=== PATIENT | male | born 1975 | race Two or more races ===

== ENCOUNTER 2024-03-07 11:12 | Outpatient (RCR) | payer MEDICAID, SELFPAY | END 2024-03-10 23:59 | disposition home or self-care (01) | LOC: SCTC 11:12 | PROVIDERS: PCP Family Medicine; Referring Provider Nurse Practitioner Family; Visit Provider Nurse Practitioner Family | DX: D47.3 Essential (hemorrhagic) thrombocythemia (principal); Z79.82 Long term (current) use of aspirin | CPT/HCPCS: 99212; G0463 ==

== ENCOUNTER 2024-05-16 14:42 | Outpatient (RCR) | payer MEDICAID, SELFPAY ==
--- NOTE | 2024-05-16 15:46 | CTCFLWUP_ITS ---
Patient: AIRAM WALDROP : 1975 Page 3 of 3 FOLLOW UP NOTE DATE OF SERVICE: 05/16/2024 NAME: AIRAM WALDROP ACCOUNT: [id number] : 1975 AGE: 48 INTERVAL HISTORY: Patient is taking 500 mg hydroxyurea daily.. Denies any history of or symptoms of stroke or TIA. No chest pain or shortness of breath. No history of amnesia. No history of ulcers on the ankle. Patient used to take hydroxyurea 2 tablets daily for years ago. HISTORY OF PRESENT ILLNESS: This is office follow-up visit. Mr. Candelaria is here at [facility]. He is clinically doing well. Bone marrow biopsy done on 02/22/2023 showed findings consistent with essential thrombocythemia, JAK2 mutation detected. Patient started hydroxyurea 500 mg daily about 2 weeks ago, allopurinol 300 mg daily, tolerating both medications well. . Denies any complaints or concerns. Denies any history of DVT, PE, strokes, heart attack. Denies any cough, chest pain. Denies any nosebleeds or gum bleeds. Denies any recent illness. Mr. Candelaria continues to take baby aspirin 81 mg daily. 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 01/31/2017: KAYLEE 2 mutation positive. Platelet count 743,000, WBC 7.0, hematocrit 15.9. 06/06/2017: Platelets [id number], WBC 6.3 and hemoglobin 15.7. 08/02/2017: Platelets 440,000, WBC 6.6 and hemoglobin 14.6. 10/02/2017: Platelets 595,000, WBC 7.2 and hemoglobin 14.9. 01/02/2018: Hydroxyurea and allopurinol stopped. 04/20/2018: Platelets 714,000, WBC 7.0, hemoglobin 16.0. 06/02/2018: Platelets 818,000, WBC 7.5 and hemoglobin 16.0. 07/21/2018: Platelets 828,000, WBC 7.7, hemoglobin 15.6. Hydroxyurea restarted due to worsening platelet count. 08/28/2018: Platelet count 645,000, WBC 6.5 and hemoglobin is 15.5. 11/27/2018: Platelet count 504,000, WBC 6.2, hemoglobin 14.5. 03/14/2019: Platelet count 638,000's, WBC 5.8, hemoglobin 14.9. 05/29/2018: Platelet count 613,000, WBC 5.7, hemoglobin 14.8. 08/20/2019: Platelets 626,000, WBC 6.2, hemoglobin 15.2. Again I have discussed with Mr. Candelaria regarding stopping hydroxyurea. He is very reluctant to stop it. He would like to wait till the consult from a tertiary center. 12/03/2019: Patient was seen at [facility] hematology department. Recommendation is to stop hydroxyurea and continue aspirin 81 mg p.o. daily. 12/03/2019 labs drawn at [facility] showed his platelet count to be 548,000. 03/05/2020: Platelets 825,000, WBC 6.8, ANC 3.7, hemoglobin 15.4, MCV 94. 06/02/2020: Platelet count 939,000, WBC 6.5, ANC 3.8, hemoglobin 11.1, MCV 93. 06/01/2022: Platelet count 1,006,000, hemoglobin 14.8, WBC 9.6, ANC 6.1. 11/09/2022: Platelet count is 971,000, WBC 7.0, ANC 4.0, globin 16.0, MCV 93. 06/03/2023: Platelets 1,163,000, WBC 10.3, ANC 6.6, hemoglobin 15.8, MCV 91. 09/02/2023: Platelets 996,000, WBC 6.9, ANC 4.0, hemoglobin 15.5, MCV 95 12/02/2023: Platelets 1,143, 000, WBC 11.1, ANC 7.4, hemoglobin 15.2, MCV 94 02/03/2024: Platelets 1,266,000, WBC 11.0, ANC 7.3, hemoglobin 14.7, hematocrit 48.1, MCV 93 OTHER MEDICAL HISTORY/CONDITIONS: FAMILY HISTORY: SOCIAL HISTORY: MEDICATIONS: 1. allopurinol - 300 mg 1 tab Daily 2. aspirin - 81 mg 2 tab Daily 3. Hydrea - 500 mg 2 Capsule Daily 4. hydroxyurea - 500 mg 1 Capsule Daily Medications Last Reconciled by Rosario Saini MA on 05/16/2024 ALLERGIES: No Known Drug Allergies REVIEW OF SYSTEMS: A complete 14-point review of systems was performed and is negative except as noted in interval history. PHYSICAL EXAMINATION: VITAL SIGNS: Temperature?98.4, B/P?138/85, Oxygen?Saturation?99% Weight?199?lbs PAIN: 0 - No pain ECOG Performance Status: 0 - Asymptomatic and fully active GENERAL APPEARANCE: Appears well, in no apparent distress, appropriately interactive. HEENT: Normocephalic, no temporal wasting, normal conjunctiva, no scleral icterus, normal hearing, lips without lesions, neck normal range of motion. CARDIOVASCULAR: Not assessed. PULMONARY: Normal respiratory effort, no respiratory distress or use of accessory muscles, speaking in full sentences, no tachypnea. EXTREMITIES: No pedal edema or cyanosis. SKIN: Normal skin appearance. NEUROLOGIC: Alert and oriented x4. PSHYCHIATRIC: Appropriate affect, mood normal, behavior normal, intact thought and speech. LABORATORY DATA: I have personally reviewed and interpreted each of the patient?s relevant lab tests, abnormal findings are below: Date 02/22/24 ??WHITE?BLOOD?COUNT?(Thou/mm3) 11.5?H ??RED?BLOOD?COUNT?(Miln/mm3) 5.09 ??HEMOGLOBIN?(gm/dl) 15.6 ??HEMATOCRIT?(%) 45.1 ??PLATELET?COUNT?(Thou/mm3) 1254?HH ??NEUTROPHILS?%,?AUTO?(%) 76 ??LYMPH?%,?AUTO?(%) 15 ??NEUTROPHILS,?AUTO?(Thou/mm3) 8.7?H ASSESSMENT/PLAN: #1 essential thrombocythemia JAK2 mutation positive Platelets are not at goal which will be less than 600 Increase hydroxyurea to 1000 mg daily Continue aspirin and allopurinol RTC in 4 weeks to monitor platelets Discussed the side effects of elevated platelets including stroke and OR Also advised to complete CT chest abdomen pelvis which was already ordered by Narcisa ORDERS: CBC CMP hydroxyurea [address] scan chest abdomen pelvis with IV contrast RETURN TO CLINIC: 4 weeks BILLING AND COMPLIANCE: I reviewed external records from providers outside my specialty as summarized above. I spent a total of 50 minutes on this patient?s care on the day of their visit excluding time spent related to any billed procedures. This time includes time spent with the patient as well as time spent documenting in the medical record, reviewing patients records and tests, obtaining history, placing orders, communicating with other healthcare professionals, counseling the patient, family or caregiver, and/or care coordination for the diagnoses above. Electronically Signed by: {Object.Sanct_ID*[email or web address]@M}, {Object.Sanct_ID*PnP.Suffix@U} D: {Object.Sanct_Date} T: {Object.Sanct_Time} CC: Rosaura?Lazaro,?PA-C PCP: Joel Almaraz Referring: Joel Almaraz This document was completed utilizing speech recognition software. Grammatical errors, random word insertions, pronoun errors, and incomplete sentences are an occasional consequence of this system due to software limitations, ambient noise, and hardware issues. Any formal questions or concerns about the content, text or information contained within the body of this dictation should be directly addressed to the provider for clarification.
== END 2024-06-08 23:59 | disposition home or self-care (01) ==
LOC: SCTC 14:42
PROVIDERS: PCP Family Medicine; Referring Provider Family Medicine; Visit Provider Internal Medicine Hematology & Oncology
DX: D47.3 Essential (hemorrhagic) thrombocythemia (principal); Z79.82 Long term (current) use of aspirin
CPT/HCPCS: 99212; G0463

== ENCOUNTER 2024-06-13 15:34 | Outpatient (RCR) | payer MEDICAID, SELFPAY | END 2024-07-09 23:59 | disposition home or self-care (01) | LOC: SCTC 15:34 | PROVIDERS: PCP Family Medicine; Referring Provider Family Medicine; Visit Provider Nurse Practitioner Family | DX: D47.3 Essential (hemorrhagic) thrombocythemia (principal) | CPT/HCPCS: 99212; G0463 ==

== ENCOUNTER 2024-09-17 15:16 | Outpatient (RCR) | payer MEDICAID, SELFPAY | END 2024-10-08 23:59 | disposition home or self-care (01) | LOC: SCTC 15:16 | PROVIDERS: PCP Family Medicine; Referring Provider Family Medicine; Visit Provider Nurse Practitioner Family | DX: D47.3 Essential (hemorrhagic) thrombocythemia (principal) | CPT/HCPCS: 99212; G0463 ==

== ENCOUNTER → 2024-11-05 | Outpatient (CLI) | payer MEDICAID, SELFPAY ==
--- NOTE | 2024-11-05 09:30 | XR_ITS ---
Examination: Abdomen sonogram, complete Date and time of exam: November 05, 2024 0932 hours INDICATIONS: Diagnosis E central hemorrhagic thrombocythemia Technique: Multiple real-time grayscale transabdominal sonographic images of the abdomen have been obtained. Findings: Normal gallbladder. Normal common bile duct 0.2 cm Pancreatic head 2.8 cm Aorta not enlarged. Liver 15.5 cm no liver lesions Normal hepatopedal portal venous flow Patent IVC Right kidney 11.0 cm renal cortex 1.7 cm Left kidney 11.7 cm cortex 1.7 cm Mild renal parenchymal scar formation Spleen 12.2 cm IMPRESSION: Mild bilateral renal parenchymal scar formation
== END | disposition home or self-care (01) ==
LOC: CDIM 09:03
PROVIDERS: PCP Family Medicine; Referring Provider Nurse Practitioner Family; Visit Provider Nurse Practitioner Family
DX: N28.89 Other specified disorders of kidney and ureter (principal)
CPT/HCPCS: 76700

== ENCOUNTER 2024-11-19 15:08 | Outpatient (RCR) | payer MEDICAID, SELFPAY | END 2024-12-09 23:59 | disposition home or self-care (01) | LOC: SCTC 15:08 | PROVIDERS: PCP Family Medicine; Referring Provider Family Medicine; Visit Provider Nurse Practitioner Family | DX: D47.3 Essential (hemorrhagic) thrombocythemia (principal) | CPT/HCPCS: 99212; G0463 ==

== ENCOUNTER 2025-01-28 15:21 | Outpatient (RCR) | payer MEDICAID, SELFPAY | END 2025-02-08 23:59 | disposition home or self-care (01) | LOC: SCTC 15:21 | PROVIDERS: PCP Family Medicine; Referring Provider Family Medicine; Visit Provider Nurse Practitioner Family | DX: D47.3 Essential (hemorrhagic) thrombocythemia (principal) | CPT/HCPCS: 99212; G0463 ==

== ENCOUNTER 2025-02-27 15:12 | Outpatient (RCR) | payer MEDICAID, SELFPAY | END 2025-03-10 23:59 | disposition home or self-care (01) | LOC: SCTC 15:12 | PROVIDERS: PCP Family Medicine; Referring Provider Family Medicine; Visit Provider Nurse Practitioner Family | DX: D47.3 Essential (hemorrhagic) thrombocythemia (principal) | CPT/HCPCS: 99212; G0463 ==